=== PATIENT | female | born 1945 | race Caucasian/White ===

== ENCOUNTER → 2019-06-04 | Emergency (ER) | payer OTHER ==
[~2019-06-04] VITALS: Ht 160 cm; Wt 83.0 kg
[~2019-06-04] MED LIST: ALTACE2.5 MG PO; ASPIR 8181 MG PO; CIPRO500 MG PO; GLUCOTROL XL5 MG; MORGIDOX100 MG PO; SYNTHROID125 MCG PO; TOPROL XL50 M1 PO
== END | disposition home or self-care (01) ==
LOC: ER 19:29
DX: S51.022A Laceration with foreign body of left elbow, initial encounter (principal); W18.09XA Striking against other object with subsequent fall, initial encounter; Y93.01 Activity, walking, marching and hiking; Y92.480 Sidewalk as the place of occurrence of the external cause; Y99.8 Other external cause status

== ENCOUNTER 2019-06-13 21:01 | Inpatient (IN) | payer OTHER ==
[~2019-06-13] VITALS: Ht 61 cm; Wt 5.0 kg
[~2019-06-13 21:01] MED LIST changes: -MORGIDOX100 MG PO
[2019-06-17] MEDS ORDERED: MORGIDOX100 MG PO (10:08)
== END 2019-06-17 11:31 | disposition home or self-care (01) | DRG 863 ==
LOC: ER 21:01 → MEDJ 06-14 12:27
PROVIDERS: ADMIT Internal Medicine
DX: T81.41XA Infection following a procedure, superficial incisional surgical site, initial encounter (principal); L03.114 Cellulitis of left upper limb; E03.8 Other specified hypothyroidism; I10 Essential (primary) hypertension; I25.10 Atherosclerotic heart disease of native coronary artery without angina pectoris